=== PATIENT | female | born 1945 | race Asian ===

== ENCOUNTER 2020-09-14 06:10 | Outpatient (CLI) | payer MEDICARE | END 2020-09-14 23:59 | disposition home or self-care (01) | LOC: LAB 06:10 | PROVIDERS: ATTEND Ophthalmology | DX: Z01.812 Encounter for preprocedural laboratory examination (principal); Z20.828 Contact with and (suspected) exposure to other viral communicable diseases ==

== ENCOUNTER 2020-09-16 06:44 | Day surgery (SDC) | payer MEDICARE, OTHER ==
[2020-09-16] MEDS ORDERED: KETOROLAC 0.5% OPHT DROP 3 ML BOTTLE ONE (06:54)
[2020-09-16] MEDS ORDERED: TROPICAMIDE 1% OPHT DROP 3 ML BOTTLE ONE (06:54)
[2020-09-16] MEDS ORDERED: CIPROFLOXACIN 0.3% OPHT DROP 2.5 ML BOTTLE ONE (06:54)
[2020-09-16] MEDS ORDERED: PHENYLEPHRINE 2.5% OPHT DROP 2 ML BOTTLE ONE (06:55)
[2020-09-16] MEDS ORDERED: CYCLOPENTOLATE 2% OPHT DROP 2 ML BOTTLE ONE (06:55)
[2020-09-16] MEDS ORDERED: BALANCED SALT IRRIG SOLN COMB1 500 ML, EPINEPHRINE-PF 1:1000 0.5 MG IO ONE ×2 (07:00)
[2020-09-16] MEDS ORDERED: NEO/POLYMYX B/DEXAME OPHT OINT 3.5 GM TUBE ONE (07:16)
[2020-09-16] MEDS ORDERED: TETRACAINE HCL ONE (07:17)
[2020-09-16] MEDS ORDERED: LIDOCAINE 2%-EPI 1:100,000 20 ML VIAL ONE (07:18)
[2020-09-16] MEDS ORDERED: BALANCED SALT IRRIG SOLN COMB2 15 ML IRRIG.SOLN ONE (07:23)
[2020-09-16] MEDS ORDERED: ACETYLCHOLINE CHLORIDE 1% OPHT 1 EA KIT ONE (07:23)
[2020-09-16] MEDS ORDERED: LIDOCAINE-MPF 2% , 2 ML VIAL ONE (07:23)
[2020-09-16] MEDS ORDERED: HYALURONATE SODIUM 12.8 MG/0.8 ML DISP.SYRIN ONE ×2 (07:24→07:26)
[2020-09-16] MEDS ORDERED: BALANCED SALT IRRIG SOLN COMB1 500 ML ONE ×2 (07:24→08:58)
[2020-09-16] MEDS ORDERED: BUPIVACAINE PF 0.5% 30 ML VIAL ONE (07:24)
[2020-09-16] MEDS ORDERED: HYALURONIDASE,OVINE 200 UNITS/ML VIAL ONE (07:24)
[2020-09-16] MEDS ORDERED: FENTANYL CITRATE 100 MCG/2 ML AMPUL ONE (08:06)
[2020-09-16] MEDS ORDERED: MOXIFLOXACIN HCL 3 ML OPHT DROPS ONE (08:29)
[2020-09-16] MEDS ORDERED: TIMOLOL MALEATE 0.5% OPHT DROP 5 ML BOTTLE ONE (09:16)
== END 2020-09-16 10:40 | disposition home or self-care (01) ==
LOC: DS 06:44
PROVIDERS: ATTEND Ophthalmology
DX: H25.89 Other age-related cataract (principal); H11.001 Unspecified pterygium of right eye; I12.9 Hypertensive chronic kidney disease with stage 1 through stage 4 chronic kidney disease, or unspecified chronic kidney disease; N18.30 Chronic kidney disease, stage 3 unspecified; M81.0 Age-related osteoporosis without current pathological fracture; M19.90 Unspecified osteoarthritis, unspecified site; K21.9 Gastro-esophageal reflux disease without esophagitis; Z79.899 Other long term (current) drug therapy; Z98.890 Other specified postprocedural states
CPT/HCPCS: 65420; 66984; 71045; J0171; J3010; J3471; J3490 ×3; J7120; J7321 ×2; V2632; A4663